=== PATIENT | female | born 2005 | race Caucasian/White ===

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

== ENCOUNTER 2023-04-21 06:57 | Emergency (ER) | payer OTHER ==
[2023-04-21 07:19] VITALS: BMI 30.2
[2023-04-21] MEDS ORDERED: AMOX TR/POT CLAV 875MG/125MG TABLETS (FP) ONE (09:10)
[2023-04-21] MEDS: AMOX TR/POT CLAV 875MG/125MG TABLETS (FP) PO ONE (09:22)
[2023-04-21 09:27] LABS: BASO % 0.8 % (0-2.0); EOS % 3.4 % (0-4.5); HEMATOCRIT 36.7 % (32.4-45.2); HEMOGLOBIN 12.5 GM/dL (10.7-15.3); LYMPH % 31.3 % (8-40); MCH 31.7 pg (25.7-33.7); MCHC 34.1 g/dl (32.0-36.0); MEAN CELL VOLUME 92.8 fl (80-96); MEAN PLT VOLUME 7.6 fl (7.5-11.1); MONO % 5.9 % (3.8-10.2); NEUT % 58.6 % (42.8-82.8); PLATELET COUNT 272 10^3/uL (134-434); RBC 3.96 M/mm3 (3.60-5.2); RDW 12.8 % (11.6-15.6); WHITE BLOOD COUNT 6.4 K/mm3 (4.0-10.0)
[2023-04-21 09:34] LABS: VENOUS O2 SATURATION 54.1 % (70-80); VENOUS PCO2 42.7 mmHg (38-52); VENOUS PH 7.358 (7.310-7.410)
[2023-04-21 09:44] LABS: CHLORIDE 110 mmol/L (98-107); POTASSIUM 4.2 mmol/L (3.5-5.1); SODIUM 140 mmol/L (136-145)
[2023-04-21 09:46] LABS: CALCIUM 8.8 mg/dL (8.5-10.1)
[2023-04-21 09:47] LABS: ALBUMIN 3.8 g/dl (3.4-5.0); ANION GAP 5 mmol/L (4-13); BLOOD UREA NITROGEN 11.3 mg/dL (7-18); CO2 25 mmol/L (21-32); GLUCOSE,RANDOM 87 mg/dL (74-106)
[2023-04-21 09:50] LABS: CREATININE 0.5 mg/dL (0.55-1.3); SGOT/AST 6 U/L (15-37); SGPT/ALT 9 U/L (13-61)
[2023-04-21 09:53] LABS: ALK PHOS 88 U/L (45-117); TOT PROT 7.5 g/dl (6.4-8.2)
[2023-04-21 10:35] LABS: BILIRUBIN,TOTAL 0.5 mg/dL (0.2-1)
[2023-04-21] MEDS ORDERED: ONDANSETRON *ODT* 4 MG TABLET ONE (11:28)
[2023-04-21] MEDS: ONDANSETRON *ODT* 4 MG TABLET SL ONE (11:43)
[2023-04-21 12:39] VITALS: BP 98/61; PULSE 78; RESP 16; TEMP 98.2
== END 2023-04-21 12:39 | disposition home or self-care (01) ==
LOC: JER 06:57
DX: R07.89 Other chest pain (principal); K08.89 Other specified disorders of teeth and supporting structures
CPT/HCPCS: 36415; 71046-TC-FY; 80053; 80307; 82803; 83735; 84484; 84702; 85025; 93005; 93010; 99285-25; Q0162